=== PATIENT | female | born 1995 | race Caucasian/White ===

== ENCOUNTER 2016-09-07 18:17 | Emergency (ER) | payer OTHER ==
[~2016-09-07] VITALS: Ht 160 cm; Wt 89.5 kg
[~2016-09-07 18:17] MED LIST: IBUP-1542 PO; PRENAT PO
[2016-09-07 18:33] VITALS: Ht 160 cm; Wt 89.5 kg
--- NOTE | 2016-09-07 20:26 | ERD ---
ER Documentation Chief Complaint Date/Time DATE: 09/07/16 TIME: 20:23 Chief Complaint puncture wound to left hand with kitchen knife 3 hours ago, c/o swelling HPI This pleasant, right-handed, 21-year-old female resents to emergency department today for left hand stab wound. pt reports that she was trying to cut around the [place]onald in the [place] around fri and stabed her left hand web space between thumb and first digit. denies numbness, reports warmth and edema, pain 9/10 on pain scale ROS All systems reviewed and are negative except as per history of present illness. Medications Home Meds Active Scripts Ibuprofen* (Motrin*) 600 Mg Tab, 600 MG PO Q6, #20 TAB Prov:HAMZAH ETIENNE MD 03/04/15 Reported Medications Multivit/Min/Fol Ac/Iron/Pren* ( S*) 1 Tab Tab, 1 TAB PO DAILY, TAB 09/30/13 Allergies Allergies: Coded Allergies: No Known Drug Allergies (Verified Allergy, Unknown, 09/07/16) Uncoded Allergies: NONE (Allergy, Unknown, 06/09/13) PMhx/Soc History of Surgery: No Anesthesia Reaction: No Hx Neurological Disorder: No Hx Respiratory Disorders: No Hx Cardiac Disorders: No Hx Psychiatric Problems: No Hx Miscellaneous Medical Probl: No Hx Alcohol Use: No Hx Substance Use: No Hx Tobacco Use: No Physical Exam Vitals Vital Signs Date Time Temp Pulse Resp B/P Pulse Ox O2 Delivery O2 Flow Rate FiO2 09/07/16 18:33 98.3 80 20 135/86 99 Physical Exam Const: Well-nourished, well-hydrated, in no acute distress Head: Atraumatic Eyes: Normal Conjunctiva ENT: Normal External Ears, Nose and Mouth. Neck: Full range of motion..~ No meningismus. Resp: Clear to auscultation bilaterally Cardio: Regular rate and rhythm, no murmurs Abd: Soft, non tender, non distended. Normal bowel sounds Skin: No petechiae or rashes Back: No midline or flank tenderness Ext: Hand -left 0.3 cm stab wound noted in the webbing between the thumb and pointer finger Compartments: [Soft] Sensation: Intact shoulder/pinky/middle finger/thumb web space Bones: Nontender Snuffbox: Nontender Joints: No effusion Finger: Flex/Ext: Normal/pain with movement Add/abd: Normal Thumb: Flex/Ext: Normal/pain with movement Opposition: Normal Thumbs up: Normal Neur: Awake and alert Psych: Normal Mood and Affect Results 24 hrs Current Medications Medications (Trade) Dose Ordered Sig/Blayne Route PRN Reason Start Time Stop Time Status Last Admin Dose Admin Diphtheria/ Tetanus/Acell Pertussis (Adacel) 0.5 ml ONCE ONCE IM* 09/07/16 20:30 09/07/16 20:31 DC Cephalexin (Keflex) 500 mg ONCE ONCE PO 09/07/16 20:30 09/07/16 20:31 DC Trimethoprim/ Sulfamethoxazole (Bactrim (Ds)) 1 tab ONCE ONCE PO 09/07/16 20:30 09/07/16 20:31 DC Ibuprofen (Motrin) 400 mg ONCE ONCE PO 09/07/16 20:30 09/07/16 20:31 DC Procedures/MDM This pleasant 21-year-old female presents to emergency department after inadvertently stabbing herself with a knife while trying to cut away linoleum from under her for generator at home. Ligament injury, foreign body, complex laceration is not suspected. Patient treated in emergency department with ibuprofen, first dose of Keflex and Bactrim given. Patient discharged home with Keflex 500 mg 1 tab 4 times daily 10 days, Bactrim 1 tab p.o. twice daily 7 days, Motrin 400 mg 1 tab p.o. 4 times daily as needed pain. Patient instructed to observe for for any changes to wound. Change dressing over the wound at least once a day. If dressing becomes wet change immediately. He is on the soap and water to clean your wound. Use [id number] antibiotic ointment twice a day 3 days. Observe 1 daily for signs of infection which include increased pain, increased redness especially redness spreading towards your heart, post drainage or increased swelling. If there are any of these signs or if you are not sure return as soon as possible. I feel the patient is stable for discharge at this time outpatient management by primary care physician. I have discussed results, examination findings, the treatment plan with the patient and family present prior to discharge. Indications for emergent reevaluation, side effects of medication were also discussed. All questions were answered. Patient verbalizes understanding and agrees with plan of care. Departure Diagnosis: Primary Impression: Cellulitis Site of cellulitis: extremity Site of cellulitis of extremity: upper extremity Laterality: left Qualified Code: L03.114 - Cellulitis of left upper extremity Patient Instructions: Cellulitis Additional Instructions: Thank you for for coming to [facility] for your care today. Please ask your nurse or provider if you have questions about your care today and do not leave until all your questions have been answered. Please use any medications given as directed and follow-up with your doctor (or the doctor you were referred to) in the next 2-3 days. If you do not have a primary care doctor you may follow up at the [facility] (listed below). You may also use motrin and tylenol as needed for fever and/or pain unless instructed otherwise by your provider or nurse. Indications for more urgent follow-up have been discussed, but you may return to the Emergency Department at ANY time for any worrisome or worsening symptoms. If you have abdominal pain, please know that no test or exam you received is perfect and you should follow up within 8 hours for continued pain. If you had any imaging studies today, such as an X-Ray or CT Scan, these studies will be reviewed later by a radiologist. You will be called if there are important findings that were not identified today, so make sure the contact information you provided at registration is correct. If you received any narcotic pain control medicine today, such as Vicodin, Morphine or Dilaudid, your coordination and judgment may be affected for a number of hours. Please do not drive or operate heavy machinery, and you may want someone to assist you at home. If you were given a prescription for narcotic medication, be aware that it is very addictive- use sparingly and only if necessary. CAROLINA LUCERO Sep 07, 2016 20:26
[2016-09-07] MEDS ORDERED: IBUPROFEN 200 MG TAB PO ONE (20:30)
[2016-09-07] MEDS ORDERED: TRIMETHOPRIM/SULFAMETHOX (DS) TAB PO ONE (20:30)
[2016-09-07] MEDS ORDERED: CEPHALEXIN 500 MG CAP PO ONE (20:30)
[2016-09-07] MEDS ORDERED: DIPHTH/TET/ACEL PERTUSS (ADULT) 0.5 ML VIAL IM* ONE (20:30)
== END 2016-09-08 02:44 | disposition home or self-care (01) ==
LOC: FTE 18:17 → E/R 09-08 02:44
DX: L03.114 Cellulitis of left upper limb (principal); W26.0XXA Contact with knife, initial encounter; Y92.000 Kitchen of unspecified non-institutional (private) residence as the place of occurrence of the external cause
CPT/HCPCS: 90715; 99282

== ENCOUNTER 2017-07-13 13:58 | Emergency (ER) | END 2017-07-13 14:46 | disposition home or self-care (01) ==